=== PATIENT | male | born 1980 | race Caucasian/White ===

== ENCOUNTER → 2023-09-06 | Emergency (ER) | payer BC ==
[~2023-09-06] MED LIST: CEFAZOLIN SODIUM 1 GM/VIAL ONE; CEPHALEXIN 250 MG CAP ONE; HYDROCODONE/APAP 10/325 TAB ONE; KETOROLAC 30 MG/ML INJ ONE; LIDOCAINE 1% 20 ML MDV ONE; MORPHINE 4 MG/ML SYR ONE; NA CHLORIDE 0.9% 1,000 ML ONE; NA CHLORIDE 0.9% 50 ML ONE; ONDANSETRON 4 MG/2 ML VIAL ONE; PROMETHAZINE 25 MG TABLET ONE
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
--- NOTE | 2023-09-06 07:36 | ER ---
Nurse's Notes [facility] Name: Dago Vazquez Age: 43 yrs Sex: Male : 1980 Arrival Date: 09/06/2023 Time: 01:58 Bed 18 Private MD: Diagnosis: Left periorbital contusion, left inferior orbital fracture, left orbital floor fracture, upper lip laceration complicated, acute facial injury, closed head injury Presentation: 09/05 02:11 Chief complaint: Patient states: Tripped and fell today at 0100. Pt states that he fell cm10 forward. Pt noted to have laceration to top lip and swelling to left eye. Pt denies any LOC and reports that he has been drinking tonight. Coronavirus screen: Client denies travel out of the [place] in the last 14 days. At this time, the client does not indicate any symptoms associated with coronavirus-19. Ebola Screen: Patient denies travel to an Ebola-affected area in the 21 days before illness onset. No symptoms or risks identified at this time. Initial Sepsis Screen: Does the patient meet any 2 criteria? No. Patient's initial sepsis screen is negative. Does the patient have a suspected source of infection? No. Patient's initial sepsis screen is negative. Risk Assessment: Do you want to hurt yourself or someone else? Patient reports no desire to harm self or others. Onset of symptoms was September 06, 2023. 02:11 Method Of Arrival: Ambulatory cm10 02:11 Acuity: LORETTA 3 pf1 Triage Assessment: 02:13 General: Appears in no apparent distress. comfortable, Behavior is calm, cooperative. cm10 Pain: Complains of pain in left eye and mouth. Neuro: No deficits noted. Level of Consciousness is awake, alert, obeys commands, Oriented to person, place, time, situation. Respiratory: No deficits noted. Airway is patent Respiratory effort is even, unlabored, Respiratory pattern is regular, symmetrical. Historical: - Allergies: 02:13 No Known Allergies; cm10 - PMHx: 02:13 ADHD; cm10 - Immunization history:: Adult Immunizations up to date, Last tetanus immunization: < 5 years ago. - Social history:: Smoking status: Patient reports the use of cigarette tobacco products, smokes one-half pack cigarettes per day, Reported history of juuling and/or vaping. - Family history:: not pertinent. Screenin:19 [facility] ED Fall Risk Assessment (Adult) History of falling in the last 3 months, pf1 including since admission Yes- single mechanical fall (1 pt) Confusion or Disorientation No (0 pts) Intoxicated or Sedated No (0 pts) Impaired Gait No (0 pts) Mobility Assist Device Used No (0 pt) Altered Elimination No (0 pt) Score/Fall Risk Level 0 - 2 = Low Risk Oriented to surroundings, Maintained a safe environment, Educated pt \T\ family on fall prevention, incl call for assistance when getting out of bed, Assessed \T\ reinforced patient's understanding of fall precautions, Provided non-skid footwear, Hourly rounding (assess needs \T\ fall precautionary measures) done, Used ambulatory aids as needed (educated on \T\ assisted with), Used gait belt as appropriate. Abuse screen: Denies threats or abuse. Nutritional screening: No deficits noted. Tuberculosis screening: No symptoms or risk factors identified. Assessment: 02:12 General: Appears in no apparent distress. comfortable, well groomed, well developed, pf1 Behavior is calm, cooperative, appropriate for age, quiet. Pain: Complains of pain in left eye and mouth Pain currently is 7 out of 10 on a pain scale. Pain began 1 hour ago. Neuro: Level of Consciousness is awake, alert, obeys commands, Oriented to person, place, time, situation, Reports headache in left frontal area. Cardiovascular: No deficits noted. Capillary refill < 3 seconds Patient's skin is warm and dry. Respiratory: No deficits noted. Airway is patent Respiratory effort is even, unlabored, Respiratory pattern is regular, symmetrical, Breath sounds are clear bilaterally. GI: No deficits noted. No signs and/or symptoms were reported involving the gastrointestinal system. Abdomen is round non-distended. : No deficits noted. No signs and/or symptoms were reported regarding the genitourinary system. EENT: laceration noted to mid upper lip. Reports pain in mouth and left eye. Derm: Wound noted mid upper lip Bruising that is bright red, dark purple, on left eye. Musculoskeletal: No deficits noted. No signs and/or symptoms reported regarding the musculoskeletal system. Circulation, motion, and sensation intact. Capillary refill. 02:12 Derm: Wound noted abrasion noted to upper lip/mouth. pf1 03:00 Reassessment: Patient appears in no apparent distress at this time. Patient and/or pf1 family updated on plan of care and expected duration. Pain level reassessed. Patient is alert, oriented x 3, equal unlabored respirations, skin warm/dry/pink. Patient states symptoms have improved. 04:00 Reassessment: Patient appears in no apparent distress at this time. Patient and/or pf1 family updated on plan of care and expected duration. Pain level reassessed. Patient is alert, oriented x 3, equal unlabored respirations, skin warm/dry/pink. Patient states feeling better. Patient states symptoms have improved. 05:00 Reassessment: Patient appears in no apparent distress at this time. Patient and/or pf1 family updated on plan of care and expected duration. Pain level reassessed. Patient is alert, oriented x 3, equal unlabored respirations, skin warm/dry/pink. 05:52 Reassessment: Patient appears in no apparent distress at this time. Patient and/or pf1 family updated on plan of care and expected duration. Pain level reassessed. Patient is alert, oriented x 3, equal unlabored respirations, skin warm/dry/pink. 06:47 Reassessment: Patient appears in no apparent distress at this time. Patient and/or pf1 family updated on plan of care and expected duration. Pain level reassessed. Patient is alert, oriented x 3, equal unlabored respirations, skin warm/dry/pink. 07:05 General: Appears in no apparent distress. comfortable, Behavior is calm, cooperative. rs5 Pain: Complains of pain in mouth and left eye Pain currently is 7 out of 10 on a pain scale. Quality of pain is described as aching, Is continuous. Neuro: Level of Consciousness is awake, alert, obeys commands, Oriented to person, place, time, situation. Cardiovascular: Patient's skin is warm and dry. Respiratory: Respiratory effort is even, unlabored, Respiratory pattern is regular, symmetrical. GI: Abdomen is round non-distended, Abd is soft and non tender X 4 quads. 07:05 : No signs and/or symptoms were reported regarding the genitourinary system. EENT: rs5 1/4 inch laceration noted to upper lip, no bleeding noted. bruising and swelling noted to left eye. Derm: Skin is intact, Skin is pink, warm \T\ dry. Musculoskeletal: Circulation, motion, and sensation intact. 07:10 Reassessment: To bedside to assist provider with sutures to upper lip. Pt tolerated rs5 procedure well. 07:40 Reassessment: No changes from previously documented assessment. rs5 Vital Signs: 02:11 BP 125 / 80; Pulse 95; Resp 18; Temp 98.3; Pulse Ox 95% on R/A; Weight 104.33 kg; cm10 Height 5 ft. 10 in. ; Pain 6/10; 02:30 BP 120 / 76; Pulse 86; Resp 16; Pulse Ox 95% on R/A; pf1 03:30 BP 130 / 86; Pulse 85; Resp 18; Pulse Ox 97% on R/A; pf1 04:00 BP 130 / 91; Pulse 74; Resp 18; Pulse Ox 95% on R/A; pf1 05:00 BP 139 / 103; Pulse 89; Resp 16; Pulse Ox 96% on R/A; Pain 6/10; pf1 05:30 BP 140 / 92; Pulse 84; Resp 18; Pulse Ox 94% on R/A; pf1 06:30 BP 121 / 77; Pulse 81; Resp 16; Pulse Ox 96% on R/A; Pain 7/10; pf1 07:40 BP 127 / 82; Pulse 77; Resp 18; Pulse Ox 99% on R/A; rs5 02:11 Body Mass Index 33.00 (104.33 kg, 177.8 cm) cm10 02:11 Pain Scale: Adult cm10 05:00 Pain Scale: Adult pf1 06:30 Pain Scale: Adult pf1 [place] Coma Score: 19:24 Eye Response: spontaneous(4). Motor Response: obeys commands(6). Verbal Response: sp4 oriented(5). Total: 15. ED Course: 02:01 Patient arrived in ED. mr 02:13 Triage completed. cm10 02:13 Magdaleno Fuentes MD is Attending Physician. sp4 02:14 Arm band placed on Patient placed in an exam room, on a stretcher, on pulse oximetry. cm10 02:20 Patient has correct armband on for positive identification. Bed in low position. Call pf1 light in reach. Side rails up X 1. 02:20 No provider procedures requiring assistance completed. pf1 02:20 Wound care: ice pack applied. to left eye. pf1 02:35 Inserted saline lock: 22 gauge in right antecubital area, using aseptic technique. pf1 03:18 CT Head C Spine In Process Unspecified. EDMS 03:18 CT Facial Bones W/O Con In Process Unspecified. EDMS 03:30 Hetal Acosta, RN is Primary Nurse. pf1 07:30 Mio Mcginnis, RN is Primary Nurse. rs5 07:34 Jennifer Fiore MD is Referral Physician. sp4 07:57 IV discontinued, intact, bleeding controlled, No redness/swelling at site. Pressure rs5 dressing applied. Administered Medications: 02:40 Drug: morphine IVP or IV 4 mg IVP once over 4 mins Route: IVP; Infused Over: 4 mins; pf1 Site: right antecubital; 03:07 Follow up: Response: No adverse reaction; Marked relief of symptoms; Pain is decreased; pf1 RASS: Alert and Calm (0) 02:40 Drug: NS 0.9% IV 1000 ml IV at 1 bolus Per protocol; 1000 mL bolus Route: IV; Rate: 1 pf1 bolus; Site: right antecubital; 03:07 Follow up: Response: No adverse reaction pf1 02:40 Drug: Ondansetron IVP 4 mg IVP once; over 2 minutes Route: IVP; Site: right antecubital;pf1 03:07 Follow up: Response: No adverse reaction; Marked relief of symptoms pf1 02:45 Drug: Ketorolac IVP 30 mg IVP once Route: IVP; Site: right antecubital; pf1 03:07 Follow up: Response: No adverse reaction; Marked relief of symptoms; Pain is decreased pf1 02:50 Drug: ceFAZolin IVPB 1 grams IVPB once Route: IVPB; Site: right antecubital; pf1 03:20 Follow up: IV Status: Completed infusion; IV Intake: 50ml pf1 07:25 Drug: Lidocaine Infiltration (1 %) 20 ml 20 ml Infiltration once; to bedside Volume: 20 rs5 ml; Route: Infiltration; 07:40 Follow up: Response: No adverse reaction rs5 07:30 Drug: [place] PO 10 mg-325 mg 1 tabs PO once Route: PO; rs5 07:40 Follow up: Response: No adverse reaction rs5 07:30 Drug: Promethazine PO 25 mg PO once Route: PO; rs5 07:40 Follow up: Response: No adverse reaction rs5 07:30 Drug: Cephalexin PO 500 mg PO once Route: PO; rs5 07:40 Follow up: Response: No adverse reaction rs5 Medication: 07:45 VIS not applicable for this client. rs5 Intake: 03:20 IV: 50ml; Total: 50ml. pf1 Outcome: 07:35 Discharge ordered by . michele 07:56 Discharged to home ambulatory, rs5 07:56 Condition: stable 07:56 Discharge instructions given to patient, family, Instructed on discharge instructions, follow up and referral plans. Demonstrated understanding of instructions, follow-up care, medications, Prescriptions given X 3, 08:01 Patient left the ED. rs5 Signatures: Dispatcher [employer] EDMS Rosa Yadav, Reg Reg Hetal Villaseñor, RN RN pf1 Mio Mcginnis RN RN rs5 Magdaleno Fuentes MD MD sp4 Damari Isbell RN RN cm10 Corrections: (The following items were deleted from the chart) 03:30 02:11 Acuity: LORETTA 4 cm10 pf1
[2023-09-06 08:07] VITALS: TEMP 98.3
[2023-09-06 08:37] VITALS: BP 127/82; O2SAT 99
--- NOTE | 2023-09-06 17:46 | RAD REPORT ---
EXAM DESCRIPTION: Facial Bones W/ Mpr 09/06/2023 3:30 AM CDT CLINICAL HISTORY: 43 years, Male, DEFORMITY COMPARISON: None TECHNIQUE: Multiple transaxial tomograms of the Maxillofacial bones were performed utilizing 2 mm sl ice thickness at 2 mm interval reconstruction. In addition 2-D multiplanar reconstructions in the cor onal and sagittal plane were performed and reviewed. An individualized dose optimization technique, Automated Exposure Control, was utilized for the perfo rmed procedure. FINDINGS: There is gas/air along the left soft tissue infraorbital region anteriorly. There is a inf erior orbital wall fracture. There is partial entrapment of the inferior rectus muscle on coronal luanne ge CT series #304 image 33/80-38/[address] series #303 image 65/110. The rest of the paranasal sinuses orbital turk, nasal bones, zygomatic bones, temporomandibular join ts, and mandible demonstrate to be within normal limits no additional fractures are identified. The globes, rest of intraconal and extraconal elements demonstrate to be within normal limits. No add itional abnormalities are identified. Superior medial and inferior turbinates are grossly unremarkable. Nasopharynx demonstrate clear. No focal masses were demonstrated. The rest of the soft tissue and bony structures are grossly unre markable. No evidence for significant lymphadenopathy and/or masses. IMPRESSION: Left inferior orbital wall fracture with partial entrapment of the inferior rectus muscl e. Gas/air along the left soft tissue infraorbital region anteriorly. Electronically signed by: Tong Whalen MD 09/06/2023 03:34 AM CDT Due to temporary technical issues with the PACS/Fluency reporting system, reports are being signed by the in house radiologists without review as a courtesy to insure prompt reporting. The interpreting radiologist is fully responsible for the content of the report.
--- NOTE | 2023-09-06 17:51 | RAD REPORT ---
EXAM DESCRIPTION: CT HEAD AND CERVICAL SPINE WITHOUT CONTRAST CLINICAL HISTORY: Fall COMPARISON: None. TECHNIQUE: CT HEAD AND CERVICAL SPINE WITHOUT CONTRAST on 09/06/2023 2:28 AM CDT This exam was performed according to our departmental dose-optimization program, which includes autom ated exposure control, adjustment of the mA and/or kV according to patient size and/or use of iterati ve reconstruction technique. FINDINGS: Brain: There is no acute hemorrhage, mass effect or midline shift. Skelton-white differentiat ion is preserved. There is no hydrocephalus. There is no significant volume loss for age. The calvarium is intact. There is near complete opacification of the maxillary sinuses. There is a de pressed fracture of the left orbital floor. There is air within the left orbit. Globes are intact. Th e paranasal sinuses are clear. Mastoid air cells are clear. Cervical Spine: There is no acute fracture. Alignment is anatomic. Disc spaces are maintained. Vertebral body heights are preserved. Soft tissues are unremarkable. IMPRESSION: Left orbital floor fracture. No acute intracranial findings. No acute cervical spine fracture. Electronically signed by: Kwadwo Gibbons MD 09/06/2023 03:41 AM CDT Due to temporary technical issues with the PACS/Fluency reporting system, reports are being signed by the in house radiologists without review as a courtesy to insure prompt reporting. The interpreting radiologist is fully responsible for the content of the report.
== END ==
LOC: ER 01:58
PROC: 0HQ1XZZ Repair Face Skin, External Approach (ICD-10-PCS; principal; 2023-09-06)
DX: S02.32XA Fracture of orbital floor, left side, initial encounter for closed fracture (principal); S01.511A Laceration without foreign body of lip, initial encounter; S05.12XA Contusion of eyeball and orbital tissues, left eye, initial encounter; F17.210 Nicotine dependence, cigarettes, uncomplicated; W18.30XA Fall on same level, unspecified, initial encounter
CPT/HCPCS: 96365; 70450; 72125; 70486; 76377; 96375; 99284; 12013; Q0169; J2001; J2405; J7030; J0690